=== PATIENT | female | born 1990 | race Hispanic/Latino ===

== ENCOUNTER 2021-02-21 08:27 | Outpatient (CLI) | payer OTHER ==
[2021-02-21 15:40] LABS: SARS-CoV-2 PCR by NAA Not Detected (NotDetected)
== END 2021-02-21 08:28 | disposition home or self-care (01) ==
LOC: CSHLAB 08:27
PROVIDERS: ATTEND Family Medicine
DX: Z20.822 Contact with and (suspected) exposure to COVID-19 (principal)
CPT/HCPCS: 87635; U0003; U0005

== ENCOUNTER 2021-02-26 10:52 | Inpatient (IN) | payer OTHER ==
[2021-02-26] MEDS ORDERED: Butorphanol Tartrate 1 MG/ML VIAL SLOW IVP PRN (19:38)
[2021-02-26] MEDS ORDERED: Methylergonovine 0.2 MG/ML VIAL IM PRN (19:38)
[2021-02-26] MEDS ORDERED: Diphenoxylate HCl/Atropine Tablet PO PRN (19:38)
[2021-02-26] MEDS ORDERED: Misoprostol 200 MCG TAB PR PRN (19:38)
[2021-02-26] MEDS ORDERED: Acetaminophen 500 MG TAB PO PRN (19:38)
[2021-02-26] MEDS ORDERED: Carboprost 250 MCG/ML AMP IM PRN (19:38)
[2021-02-26] MEDS ORDERED: Lidocaine 1% (PF) 30 ML VIAL SC PRN (19:38)
[2021-02-26] MEDS ORDERED: Ondansetron PF 4 MG/2 ML Vial IVP PRN (19:38)
[2021-02-26] MEDS ORDERED: Ibuprofen 800 MG TAB PO PRN (19:38)
[2021-02-26] MEDS ORDERED: Promethazine HCl 25 MG/ML VIAL IM PRN (19:38)
[2021-02-26] MEDS ORDERED: HYDROcodone/Acetaminophen 5/325 mg Tablet PO PRN (19:38)
[2021-02-26] MEDS ORDERED: hydrALAZINE 20 MG/ML VIAL SLOW IVP PRN (19:38)
[2021-02-26 20:22] VITALS: BMI 31.1
[2021-02-26 20:22] LABS: Mean Corpuscular HGB CONC 32.8 g/dL (32.0-36.0); Mean Corpuscular Hemoglobin 28.4 pg (27.0-33.0); Mean Corpuscular Volume 86.6 fl (81.6-98.3); Mean Platelet Volume 12.5 fl (7.4-10.4); Platelet Count 161 10x3/uL (150-450); RBC Distribution Width 14.9 % (11.5-14.5); Red Blood Cell (RBC) Count 3.87 10x6/uL (3.90-5.03); White Blood Cell (WBC) Count 7.5 10x3/uL (3.5-10.5)
[2021-02-26] MEDS ORDERED: Misoprostol 100 MCG TAB ONE (20:40)
[2021-02-26 20:53] LABS: Hep B Surf Ag Non-Reactive S/CO (NonReactive); Syphilis Antibody Nonreactive (Nonreactive); Syphilis Antibody Index 0.02 S/CO (<1.00 Non-Reactive)
[2021-02-26] MEDS ORDERED: NS w/ Oxytocin 30 units 500 ML IV PRN (20:54)
[2021-02-26 20:56] LABS: HBSAg Index 0.15 S/CO (0-0.99)
[2021-02-27] MEDS ORDERED: Butorphanol Tartrate 1 MG/ML VIAL ONE (09:00)
[2021-02-27] MEDS: Lactated Ringer's 1,000 ML IV SCH (09:04)
[2021-02-27] MEDS ORDERED: Fentanyl 4 mcg/Bup 0.1% Cadd 100 ML ONE (10:11)
[2021-02-27] MEDS ORDERED: ePHEDrine 50 MG/ML VIAL SLOW IVP PRN ×2 (10:50→10:51)
[2021-02-27] MEDS ORDERED: Acetaminophen 325 MG TAB PO PRN ×2 (10:50→10:51)
[2021-02-27] MEDS ORDERED: diphenhydrAMINE 50 MG/ML VIAL IVP PRN ×2 (10:50→10:51)
[2021-02-27] MEDS ORDERED: Lactated Ringer's 500 ML IV PRN ×2 (10:50→10:51)
[2021-02-27] MEDS ORDERED: Promethazine HCl 25 MG/ML VIAL IM PRN ×3 (10:50→22:52)
[2021-02-27] MEDS ORDERED: Ondansetron PF 4 MG/2 ML Vial IVP PRN ×3 (10:50→22:52)
[2021-02-27] MEDS ORDERED: Naloxone HCl 0.4 mg/ml Vial IVP PRN ×4 (10:50→10:51)
[2021-02-27] MEDS ORDERED: Eucerin (Mineral Oil/Petrolatum,White) 30 gm Jar TOP PRN ×2 (10:50→10:51)
[2021-02-27] MEDS ORDERED: Fentanyl 4 mcg/Bupivacaine 0.1% Cassette 100 ML EPIDURAL SCH (11:00)
[2021-02-27] MEDS ORDERED: Communication Order-Pharmacy FS SCH ×2 (11:00)
[2021-02-27] MEDS ORDERED: NS w/ Oxytocin 30 units 500 ML ONE (20:38)
[2021-02-27] MEDS ORDERED: Misoprostol 200 MCG TAB ONE (20:59)
[2021-02-27] MEDS ORDERED: Benzocaine-Menthol 82.5 ML CAN TOP PRN (22:52)
[2021-02-27] MEDS ORDERED: diphenhydrAMINE 25 MG CAP PO PRN (22:52)
[2021-02-27] MEDS ORDERED: Lanolin Ointment 7 GM TUBE TOP PRN (22:52)
[2021-02-27] MEDS ORDERED: hydrALAZINE 20 MG/ML VIAL SLOW IVP PRN (22:52)
[2021-02-27] MEDS ORDERED: Adacel (T-DAP) 0.5 ML SYRINGE IM ONE (22:52)
[2021-02-27] MEDS ORDERED: Bisacodyl 10 MG SUPP PR PRN (22:52)
[2021-02-27] MEDS ORDERED: Milk Of Magnesia 30 ML UDCUP PO PRN (22:52)
[2021-02-27] MEDS: HYDROcodone/Acetaminophen 5/325 mg Tablet PO PRN (23:23)
[2021-02-27] MEDS ORDERED: NS w/ Oxytocin 30 units 500 ML IV SCH (23:30)
[2021-02-28] MEDS: Misoprostol 100 MCG TAB PO SCH ×2 (02:08→02:09)
[2021-02-28] MEDS: Docusate Calcium (SURFAK) 240 MG CAP PO SCH ×3 (02:08→21:56)
[2021-02-28] MEDS: Lactated Ringer's 1,000 ML IV SCH ×2 (02:08→02:09)
[2021-02-28] MEDS: Ibuprofen 800 MG TAB PO SCH ×4 (04:49→21:56)
[2021-02-28] MEDS: Acetaminophen 500 MG TAB PO PRN ×3 (08:38→23:30)
[2021-02-28] MEDS: Ferrous Sulfate 325 MG TAB PO SCH ×2 (08:39→17:04)
[2021-02-28] MEDS: Prenatal Vitamin 1 TAB PO SCH (08:39)
[2021-02-28 11:34] LABS: Bilirubin Neg (Negative); Blood, Urine 250 (Negative); Clarity Slightly Cloudy (Clear); Glucose, Urine (Dipstick) Normal (Negative); Ketone, Urine Negative (Negative); Leukocyte 500 (Negative); Nitrite Negative (Negative); Protein, Urine (Dipstick) 30 mg/dl (Neg-Trace); Urobilinogen Normal mg/dL (Less than 2)
[2021-02-28 11:43] LABS: RBC/HPF 21-50 HPF (0-3); Squamous Epithelial 0-3 HPF (0-3)
[2021-02-28 11:44] LABS: Bacteria/HPF 2+ HPF (None Seen)
[2021-02-28] MEDS: HYDROcodone/Acetaminophen 5/325 mg Tablet PO PRN (12:17)
[2021-03-01 01:29] VITALS: TEMP 97.9
[2021-03-01] MEDS: Ibuprofen 800 MG TAB PO SCH ×2 (06:54→15:02)
[2021-03-01 08:27] VITALS: BP 115/74
[2021-03-01] MEDS: Ferrous Sulfate 325 MG TAB PO SCH ×3 (08:50→17:19)
[2021-03-01] MEDS: HYDROcodone/Acetaminophen 5/325 mg Tablet PO PRN ×2 (09:18→15:02)
[2021-03-01] MEDS: Docusate Calcium (SURFAK) 240 MG CAP PO SCH (09:18)
[2021-03-01] MEDS: Prenatal Vitamin 1 TAB PO SCH (09:19)
[2021-03-01] MEDS ORDERED: Cephalexin 500 MG CAP PO SCH (12:45)
== END 2021-03-01 17:20 | disposition home or self-care (01) | DRG 807 ==
LOC: EDSTATUS 19:28 → CSHLD 19:30 → CSHPP 02-28 02:06
PROVIDERS: ADMIT Family Medicine; ATTEND Family Medicine
PROC: 10907ZC Drainage of Amniotic Fluid, Therapeutic from Products of Conception, Via Natural or Artificial Opening (ICD-10-PCS; 2021-02-26)
PROC: 3E0DXGC Introduction of Other Therapeutic Substance into Mouth and Pharynx, External Approach (ICD-10-PCS; 2021-02-26)
PROC: 10E0XZZ Delivery of Products of Conception, External Approach (ICD-10-PCS; principal; 2021-02-27)
PROC: 0KQM0ZZ Repair Perineum Muscle, Open Approach (ICD-10-PCS; 2021-02-27)
DX: O69.89X0 Labor and delivery complicated by other cord complications, not applicable or unspecified (principal); Z37.0 Single live birth; Z3A.39 39 weeks gestation of pregnancy; Z20.822 Contact with and (suspected) exposure to COVID-19; O70.1 Second degree perineal laceration during delivery
CPT/HCPCS: 81001; 85027; 86780; 86850; 86900; 86901; 87340; J0595; J2590